=== PATIENT | female | born 2000 | race Two or more races ===

== ENCOUNTER 2025-01-05 21:16 | Emergency (ER) | payer MEDICAID, SELFPAY ==
[2025-01-05 21:17] VITALS: BMI 31.1
[2025-01-05 23:07] VITALS: BP 118/82; PULSE 93; RESP 18; TEMP 36.9; O2SAT 99
--- NOTE | 2025-01-05 23:36 | PD.EDFMALE ---
ED Female Urogenital RME/HPI General Chief complaint: Abdominal Pain Stated complaint: ABD PAIN 12 WEEKS PREG Time Seen by Provider: 01/05/25 23:22 Arrival date/time: 01/05/25 21:16 24F with no significant PMH presents to ED with 1 day of pelvic pain/cramping, as well as some N/V and possibly dysuria. Patient is 12 weeks , but denies vaginal bleeding. Patient took some Zofran w/o relief. Limitations: no limitations Related Data Previous Rx's ?Medication ?Instructions ?Recorded metoclopramide HCl 5 mg tablet 5 mg PO BID PRN nausea and 01/06/25 (Reglan) vomiting #14 tabs Allergies Allergy/AdvReac Type Severity Reaction Status Date / Time Penicillins Allergy Verified 01/05/25 21:17 Review of Systems Review of Systems Systems Reviewed: All systems reviewed, normal except as documented Constitutional Constitutional: Reports system reviewed and no additional complaints, except as documented, Denies fever(s) and Denies headache(s) ENT Ears, Nose, Mouth, and Throat: Denies disequilibrium and Denies headache(s) Cardiovascular Cardiovascular: Reports system reviewed and no additional complaints, except as documented, Denies chest pain and Denies dyspnea Respiratory Respiratory: Reports system reviewed and no additional complaints, except as documented, Denies cough and Denies dyspnea Gastrointestinal Gastrointestinal: Reports system reviewed and no additional complaints, except as documented, Reports as per HPI, Denies abdominal pain, Reports nausea and Reports vomiting Genitourinary Genitourinary: Reports as per HPI, Reports dysuria and Reports pelvic pain Neurologic Neurologic: Reports system reviewed and no additional complaints, except as documented, Denies confusion, Denies disequilibrium and Denies headache(s) Psychiatric Psychiatric: Denies confusion Past Medical History Past Medical History CARDIAC: Negative Congestive Heart Failure RESPIRATORY: Negative Chronic Obstructive Pulmonary Disease (COPD) GENITOURINARY: Negative Renal Disease ENDOCRINE: Negative Diabetes Mellitus Type 1 or Diabetes Mellitus Type 2 Social History SMOKING STATUS: Never smoker ED Exam General Limitations: Present no limitations General appearance: Present alert and in no apparent distress Head Head exam: Present atraumatic Eye Eye exam: Present normal appearance, PERRL and EOMI ENT ENT exam: Present normal exam, normal oropharynx and mucous membranes moist Neck Neck exam: Present normal inspection, full ROM and trachea midline Chest Chest inspection: Present normal inspection and symmetric chest wall rise Respiratory Respiratory exam: Present normal lung sounds bilaterally Cardiovascular Cardiovascular exam: Present regular rate, normal rhythm and normal heart sounds Abdominal Exam Abdominal exam: Present soft and normal bowel sounds Extremities Exam Extremities exam: Present normal inspection and full ROM Back Exam Back exam: Present normal inspection and full ROM Neurological Exam Neurological exam: Present alert, oriented X3 and CN II-XII intact Psychiatric Psychiatric exam: Present normal affect and normal mood Skin Skin exam: Present warm, dry, intact and normal color Course Quality Measures none Orders Category Date Time Status US OB <= 14 weeks fetus Stat Exams 01/06/25 00:00 Taken Beta HCG,Quantitative Stat Lab 01/05/25 23:41 Completed CBC Stat Lab 01/05/25 23:41 Completed CMP [Comprehensive Metabolic Panel] Stat Lab 01/05/25 23:41 Completed Urinalysis Stat Lab 01/06/25 01:10 Completed Urine Culture Stat Lab 01/05/25 23:42 Received Vital Signs Vital signs: Vital Signs Temperature 98.4 F 01/05/25 23:07 Pulse Rate 93 01/05/25 23:07 Respiratory Rate 18 01/05/25 23:07 Blood Pressure 118/82 01/05/25 23:07 Pulse Oximetry (%) 99 01/05/25 23:07 Oxygen Delivery Method Room Air 01/05/25 23:07 O2 at 99% on RA and WNLs Urogenital - Female MDM Narrative MDM Narrative:: 24F with no significant PMH presents to ED with 1 day of pelvic pain/cramping, as well as some N/V and possibly dysuria. Patient is 12 weeks , but denies vaginal bleeding. Patient took some Zofran w/o relief. Physical exam reveals no ab tenderness. Patient is afebrile, calm, and alert. US reveals normal IUP. Beta HCG WNLs. Mild leukocytosis, likely reactive to N/V. CMP unremarkable. UA clean, exception dehydration. Patient states no longer nausea. Will send anti-nausea med with different MOA than Zofran. Patient data External records reviewed:: [facility] previous records Clinical information provided by:: patient Social determinants that could affect healthcare access:: none Patient has the following chronic illnesses:: none How is presenting disease/condition affected by chronic disease/condition?: no chronic disease Evaluation data The following diagnostics were reviewed and interpreted by me:: lab results and radiology exam(s) Lab and/or radiology exams considered but not ordered:: ordered Interpretation Summary: above Medications / Prescriptions Medications or Prescriptions considered but not ordered:: not ordered Medication administrations:: n/a Consultations Consultation(s) initiated? (list below): No Diagnosis Urogenital Female Differential Diagnosis: urinary tract infection, bacterial vaginosis, trichomoniasis, cervicitis, ovarian cyst, vaginitis, ruptured ovarian cyst, cyst of Bartholin's gland, cystitis, dysmenorrhea and other (N/V during ) Most likely diagnosis given after review of the tests above:: N/V during Admission Indicated Admission indicated?: not indicated Admission Request Was there a request for admission?: No Disposition Plan Disposition Plan: Discharge Discharge Attestation Discharge Attestation: The patient and all family members were given an opportunity to ask questions and understood the discharge instructions. Discharge instructions specifically effects, indications for sooner follow up or return to the emergency department, and the expected course of current diagnosis. Patient condition: Stable Discharge Plan Plan Patient Disposition: HOME (Self Care) Disposition Comment: Stable Prescriptions/Referrals Prescriptions/Med Rec: New metoclopramide HCl [Reglan] 5 mg tablet 5 mg PO BID PRN (Reason: nausea and vomiting) Qty: 14 0RF Referrals: Smitha Smith FNP [Primary Care Provider] - In 1 week Problem List Clinical Impression: Nausea and vomiting during Patient/Caregiver Discharge Instructions Education Materials: ED Vomiting (Adult) Additional Instructions: Please follow-up with PCP within 24-48 hours and return immediately if symptoms worsen. Stay hydrated. Print Language: Chinese Stand Alone Forms: Patient Portal Info Letter SAHIL/CYDNEY Supervising Physician SAHIL/CYDNEY Supervising Physician: Dr. Crawford
--- NOTE | 2025-01-06 | XR_ITS ---
Examination: Complete OB ultrasound, less than 14 weeks, transabdominal Date and time of exam: January 06, 2025 at 0035 hrs. Indications: Pelvic pain onset today Technique: Obstetrical ultrasound images less than 14 weeks performed via transabdominal imaging Findings: A normal shaped single intrauterine gestation is present in the uterus. CRL 2.2 cm corresponds to 8 week 6 day gestational age Cardiac motion 166 BPM Ultrasonographic survey of visible and placental structures unremarkable. Amniotic fluid volume appears appropriate for this estimated gestational age. Right ovary 4.2 cm arterial flow. Left ovary 2.8 cm arterial flow Impression: Viable intrauterine gestation 8 weeks 6 days.
[2025-01-06 00:01] LABS: Basophils % (Auto) 0 % (0-2.5); Eosinophils % (Auto) 0 % (0-10); Hemoglobin 13.8 g/dL (12.0-16.0); Immature Granulocytes % (Auto) 0 % (0-0); Immature Granulocytes Auto 0.04 Thou/mm3 (0.00-0.00); Lymphocytes # (Auto) 0.7 Thou/mm3 (1.0-4.8); Lymphocytes % (Auto) 5 % (10-50); Mean Corpuscular HGB Conc 34.5 g/dl (31.0-37.0); Mean Corpuscular Hemoglobin 29.6 pg (25.0-35.0); Mean Corpuscular Volume 86 fL (80-100); Monocytes # (Auto) 0.3 Thou/mm3 (0.0-0.8); Monocytes % (Auto) 2 % (0-12); Neutrophils # (Auto) 12.6 Thou/mm3 (1.8-7.7); Neutrophils % (Auto) 92 % (37-80); Nucleated Red Blood Cell % 0 /100 WBC (0); Platelet Count 294 Thou/mm3 (140-440); RDW Standard Deviation 42.1 fL (36.4-46.3); Red Blood Count 4.67 Miln/mm3 (4.00-5.20); White Blood Count 13.7 Thou/mm3 (3.6-11.0)
[2025-01-06 00:24] LABS: Alanine Aminotransferase 25 U/L (10-49); Albumin, Serum 4.8 gm/dL (3.5-5.0); Albumin/Globulin Ratio 1.6 (1.2-2.2); Alkaline Phosphatase 74 U/L (46-116); Anion Gap 11 (7-16); Aspartate Amino Transferase 24 U/L (0-34); BUN/Creatinine Ratio 13 Ratio (12-20); Bilirubin,Total 0.4 mg/dL (0.3-1.2); Blood Urea Nitrogen 8 mg/dL (9-23); Calcium 10.4 mg/dL (8.3-10.6); Calcium (Corrected) 10.4 mg/dL (8.5-10.1); Carbon Dioxide 23.6 mMol/L (20.0-31.0); Chloride 104 mMol/L (98-107); Creatinine (Component) 0.6 mg/dL (0.6-1.3); Estimated Creatinine Clearance 140.2 mL/min (>60); Glucose 108 mg/dL (74-106); Osmolality,Calculated 276 (275-295); Potassium 4.2 mMol/L (3.4-5.1); Sodium 139 mMol/L (136-145); Total Protein 7.8 gm/dL (5.7-8.2); eGFR > 60 See Note
[2025-01-06 01:13] LABS: Beta HCG,Quantitative 151537 mIU/mL (<5.0)
[2025-01-06 01:18] LABS: Collection Type, Urine Clean Catch
[2025-01-06 01:36] LABS: Bilirubin,Urine Negative (Negative); Blood,Urine Trace (Negative); Clarity,Urine Clear (Clear/Hazy); Color,Urine Yellow (Lt Yel-Yel); Glucose, Urine Negative (Negative); Ketones,Urine 4+ (Negative); Leukocyte Esterase,Urine Negative (Negative); Nitrite,Urine Negative (Negative); Protein,Urine Trace (Neg - Trace); RBC,Urine 3 /hpf (0-3); Squamous Epithelial Cell,Urine 2 /hpf (0-5); Urobilinogen,Urine Negative mg/dL (0.0-1.0); WBC,Urine 2 /hpf (0-5)
--- NOTE | 2025-01-06 02:26 | PRELIM_ITS ---
Obstetric ultrasound (transabdominal ) with Doppler and wave Doppler spectral analysis. January 06, 2025 0035 hours Clinical history: Pain, no bleeding; 12 weeks Technique: Real-time ultrasound was performed using Duplex scanning including arterial inflow, venous outflow, color and spectral Doppler analysis of both ovaries. Comparison: None. Findings: There is an intrauterine gestation with a single live fetus of mean gestational age 8 weeks and 6 days (CRL= 2.2 cm). cardiac activity is present at heart rate of 166 beats per minute. The uterus measures 12.3 x 5.9 x 6.0 cm. The right ovary measures 4.2 x 2.0 x 3.0 cm and is unremarkable. The left ovary measures 2.8 x 1.7 x 2.0 cm and is unremarkable. Normal blood flow in the bilateral ovaries with normal wave Doppler spectral analysis. There is no free fluid in the pelvis. Impression: Intrauterine gestation with a single live fetus of mean gestational age 8 weeks and 6 days. No evidence of ovarian torsion. Report Electronically Signed By: Lance Collins 01/06/2025 2:25:48 AM [EST]
[2025-01-06 02:39] VITALS: BP 122/79; PULSE 89; RESP 19; TEMP 36.9; O2SAT 98
== END 2025-01-06 02:44 | disposition home or self-care (01) ==
PROVIDERS: Physician Assistant; Emergency Provider Emergency Medicine; PCP Registered Nurse Community Health
DX: O21.9 Vomiting of pregnancy, unspecified (principal); Z3A.12 12 weeks gestation of pregnancy
CPT/HCPCS: 36415; 76801; 80053; 81001; 84702; 85025; 87077; 87086; 87186; 99284

== ENCOUNTER 2025-05-09 09:05 | Observation (INO) | payer MEDICAID, SELFPAY ==
[2025-05-09] VITALS (28 sets, daily range): BP systolic 116–139; BP diastolic 72–80; PULSE 85–108; RESP 20–99; TEMP 37.2; O2SAT 98–99; BMI 37.4
--- NOTE | 2025-05-09 09:34 | XR_ITS ---
Examination: Complete OB ultrasound greater than 14 weeks Date and time of exam: May 09, 2025 1126 hours INDICATIONS: Vaginal bleeding and pelvic cramping beginning this morning Findings: Viable intrauterine single fetus with single amniotic sac presentation cephalic Cardiac motion 140 BPM Placenta anterior grade 1 Umbilical cord insertion 3 vessel seen. Amniotic fluid index 19.2 cm Mildly dilated left renal calyces spine anterior Cervix 4.0 cm. Composite estimated gestational age based on BPD, head circumference, abdominal circumference, femur length is 20 weeks 3 days Estimated weight 1101 g. Survey of intracranial anatomy, spinal anatomy, abdominal anatomy, four-chamber heart performed with no abnormalities identified. Impression: Viable intrauterine gestation cephalic presentation.
== END 2025-05-09 12:58 | disposition home or self-care (01) ==
PROVIDERS: Admitting Provider Obstetrics & Gynecology; Visit Provider Obstetrics & Gynecology
DX: O46.92 Antepartum hemorrhage, unspecified, second trimester (principal); Z3A.20 20 weeks gestation of pregnancy
CPT/HCPCS: 59025; 59899; 76805

== ENCOUNTER 2025-07-01 20:25 | Observation (INO) | payer MEDICAID, SELFPAY ==
[2025-07-01] VITALS (14 sets, daily range): BP systolic 106–134; BP diastolic 63–84; PULSE 93–117; RESP 17–99; TEMP 37; BMI 40.6
[2025-07-01 21:49] LABS: Collection Type, Urine Clean Catch
[2025-07-01 21:50] LABS: Basophils # (Auto) 0.0 Thou/mm3 (0.0-0.2); Basophils % (Auto) 1 % (0-2.5); Eosinophils # (Auto) 0.2 Thou/mm3 (0.0-0.5); Eosinophils % (Auto) 3 % (0-10); Hematocrit 36.1 % (36.0-46.0); Hemoglobin 12.2 g/dL (12.0-16.0); Immature Granulocytes Auto 0.05 Thou/mm3 (0.00-0.00); Lymphocytes # (Auto) 1.8 Thou/mm3 (1.0-4.8); Lymphocytes % (Auto) 22 % (10-50); Mean Corpuscular HGB Conc 33.8 g/dl (31.0-37.0); Mean Corpuscular Hemoglobin 29.7 pg (25.0-35.0); Mean Corpuscular Volume 88 fL (80-100); Monocytes # (Auto) 0.6 Thou/mm3 (0.0-0.8); Monocytes % (Auto) 7 % (0-12); Neutrophils # (Auto) 5.7 Thou/mm3 (1.8-7.7); Neutrophils % (Auto) 67 % (37-80); Nucleated Red Blood Cell # 0.00 Thou/mm3 (0.00-0.00); Nucleated Red Blood Cell % 0 /100 WBC (0); Platelet Count 305 Thou/mm3 (140-440); RDW Standard Deviation 44.5 fL (36.4-46.3); Red Blood Count 4.11 Miln/mm3 (4.00-5.20); White Blood Count 8.5 Thou/mm3 (3.6-11.0)
[2025-07-01 22:07] LABS: Bacteria,Urine 4+; Bilirubin,Urine Negative (Negative); Blood,Urine Negative (Negative); Clarity,Urine Clear (Clear/Hazy); Color,Urine Colorless (Lt Yel-Yel); Glucose, Urine Negative (Negative); Ketones,Urine Negative (Negative); Leukocyte Esterase,Urine Negative (Negative); Nitrite,Urine Negative (Negative); PH,Urine 7.0 (5.0-7.0); Protein,Urine Negative (Neg - Trace); RBC,Urine 1 /hpf (0-3); Specific Gravity,Urine 1.003 (1.001-1.035); Squamous Epithelial Cell,Urine 2 /hpf (0-5); Urobilinogen,Urine Negative mg/dL (0.0-1.0); WBC,Urine 1 /hpf (0-5)
[2025-07-01 22:11] LABS: Fibrinogen 553 mg/dL (175-375); INR 0.9 (0.9-1.3); Partial Thromboplastin Time 27.9 Seconds (22.0-36.0); Prothrombin Time 9.8 Seconds (9.0-12.2)
[2025-07-01 22:17] LABS: Alanine Aminotransferase 10 U/L (10-49); Albumin, Serum 4.1 gm/dL (3.5-5.0); Albumin/Globulin Ratio 1.6 (1.2-2.2); Alkaline Phosphatase 137 U/L (46-116); Anion Gap 13 (7-16); Aspartate Amino Transferase 15 U/L (0-34); BUN/Creatinine Ratio 10 Ratio (12-20); Bilirubin,Total 0.2 mg/dL (0.3-1.2); Blood Urea Nitrogen 5 mg/dL (9-23); Calcium 9.9 mg/dL (8.3-10.6); Calcium (Corrected) 9.9 mg/dL (8.5-10.1); Carbon Dioxide 21.1 mMol/L (20.0-31.0); Chloride 106 mMol/L (98-107); Creatinine (Component) 0.5 mg/dL (0.6-1.3); Estimated Creatinine Clearance 194.3 mL/min (>60); Globulin 2.5 gm/dL (2.3-3.5); Glucose 108 mg/dL (74-106); LDH (Lactate Dehydrogenase) 138 U/L (120-246); Osmolality,Calculated 277 (275-295); Potassium 3.6 mMol/L (3.4-5.1); Sodium 140 mMol/L (136-145); Total Protein 6.6 gm/dL (5.7-8.2); Uric Acid 4.2 mg/dL (3.1-7.8); eGFR > 60 See Note
[2025-07-01 22:26] LABS: Creatinine,Random Urine 13 mg/dL (30-125); Protein Total, Random Urine < 6 mg/dL (1-14)
[2025-07-01] MEDS: BETAMET ACET/BETAMET NA PH (Celestone) 6 MG/ML VIAL 12 MG IM (22:52)
== END 2025-07-01 23:12 | disposition home or self-care (01) ==
PROVIDERS: Admitting Provider Specialist; Visit Provider Specialist
DX: O26.893 Other specified pregnancy related conditions, third trimester (principal); R03.0 Elevated blood-pressure reading, without diagnosis of hypertension; Z3A.34 34 weeks gestation of pregnancy
CPT/HCPCS: 36415; 59025; 59899; 80053; 81001; 82570; 83615; 84156; 84550; 85025; 85384; 85610; 85730; J0702

== ENCOUNTER 2025-07-03 08:47 | Outpatient (CLI) | payer MEDICAID, SELFPAY ==
[2025-07-03 09:45] VITALS: BMI 40.0
[2025-07-03 10:07] VITALS: BP 119/63; PULSE 105
[2025-07-03 10:34] LABS: Basophils # (Auto) 0.0 Thou/mm3 (0.0-0.2); Basophils % (Auto) 0 % (0-2.5); Eosinophils # (Auto) 0.1 Thou/mm3 (0.0-0.5); Eosinophils % (Auto) 1 % (0-10); Hematocrit 35.1 % (36.0-46.0); Hemoglobin 11.6 g/dL (12.0-16.0); Immature Granulocytes Auto 0.09 Thou/mm3 (0.00-0.00); Lymphocytes # (Auto) 1.9 Thou/mm3 (1.0-4.8); Lymphocytes % (Auto) 27 % (10-50); Mean Corpuscular HGB Conc 33.0 g/dl (31.0-37.0); Mean Corpuscular Hemoglobin 29.1 pg (25.0-35.0); Mean Corpuscular Volume 88 fL (80-100); Monocytes # (Auto) 0.6 Thou/mm3 (0.0-0.8); Monocytes % (Auto) 9 % (0-12); Neutrophils # (Auto) 4.3 Thou/mm3 (1.8-7.7); Neutrophils % (Auto) 61 % (37-80); Nucleated Red Blood Cell # 0.00 Thou/mm3 (0.00-0.00); Nucleated Red Blood Cell % 0 /100 WBC (0); Platelet Count 288 Thou/mm3 (140-440); RDW Standard Deviation 44.5 fL (36.4-46.3); Red Blood Count 3.98 Miln/mm3 (4.00-5.20); White Blood Count 6.9 Thou/mm3 (3.6-11.0)
[2025-07-03 10:37] VITALS: BP 113/66; PULSE 105
[2025-07-03 10:43] LABS: Alanine Aminotransferase 11 U/L (10-49); Albumin, Serum 4.0 gm/dL (3.5-5.0); Albumin/Globulin Ratio 1.7 (1.2-2.2); Alkaline Phosphatase 130 U/L (46-116); Anion Gap 11 (7-16); Aspartate Amino Transferase 12 U/L (0-34); BUN/Creatinine Ratio 12 Ratio (12-20); Bilirubin,Total < 0.2 mg/dL (0.3-1.2); Blood Urea Nitrogen 6 mg/dL (9-23); Calcium 9.1 mg/dL (8.3-10.6); Calcium (Corrected) 9.1 mg/dL (8.5-10.1); Carbon Dioxide 23.6 mMol/L (20.0-31.0); Chloride 107 mMol/L (98-107); Creatinine (Component) 0.5 mg/dL (0.6-1.3); Globulin 2.3 gm/dL (2.3-3.5); Glucose 100 mg/dL (74-106); Osmolality,Calculated 280 (275-295); Potassium 3.6 mMol/L (3.4-5.1); Sodium 142 mMol/L (136-145); Total Protein 6.3 gm/dL (5.7-8.2); Uric Acid 4.5 mg/dL (3.1-7.8); eGFR > 60 See Note
[2025-07-03 10:46] LABS: Fibrinogen 506 mg/dL (175-375); INR 0.9 (0.9-1.3); Partial Thromboplastin Time 26.4 Seconds (22.0-36.0); Prothrombin Time 9.8 Seconds (9.0-12.2)
[2025-07-03 10:47] LABS: Protein Total, Urine 8 mg/dL (1-14)
[2025-07-03 10:49] LABS: Protein Total, 24 hr Urine 344 mg/24hr (<149); Protein Total, Urine Volume 4300 mL/24hr (600-1800)
[2025-07-03 10:57] VITALS: BP 117/71; PULSE 100
[2025-07-03] MEDS: BETAMET ACET/BETAMET NA PH (Celestone) 6 MG/ML VIAL 12 MG IM (10:58)
[2025-07-03 11:11] VITALS: BP 113/61; PULSE 90
== END 2025-07-03 12:00 | disposition home or self-care (01) ==
LOC: S4S1 08:47 → S4SX 08:48
PROVIDERS: Referring Provider Specialist; Visit Provider Specialist
DX: Z36.89 Encounter for other specified antenatal screening (principal); Z34.90 Encounter for supervision of normal pregnancy, unspecified, unspecified trimester; Z3A.00 Weeks of gestation of pregnancy not specified
CPT/HCPCS: 36415; 59025; 80053; 84156; 84550; 85025; 85384; 85610; 85730; 96372; J0702

== ENCOUNTER 2025-07-13 14:48 | Inpatient (IN) | payer MEDICAID, SELFPAY ==
[2025-07-13] VITALS (35 sets, daily range): BP systolic 102–175; BP diastolic 53–101; PULSE 95–142; RESP 14–25; TEMP 36.3–36.5; O2SAT 96–99; BMI 39.9
--- NOTE | 2025-07-13 15:01 | PD.LDHP ---
Documentation for date of: 07/13/25 OB Labor/Induct. HPI History of Present Illness : 1 Term pregnancies: 0 pregnancies: 0 Living children: 0 History of Abortions: Spontaneous and Elective: 0 History of sections: No History of : No History of present illness: H and P dictated on the STAT line in Nuance #9. #[id number] Past Medical History Surgical History SURGICAL: Negative Section Meds Home Medications and Allergies Home Medications ?Medication ?Instructions ?Recorded ?Confirmed ?Type vitamins no.45-iron-FA 28 1 tab PO QDAY 05/09/25 07/13/25 History mg iron-1 mg chewable tablet Allergies Allergy/AdvReac Type Severity Reaction Status Date / Time Penicillins Allergy Verified 07/13/25 14:51 OB Exam Physical Exam Vital signs: Pulse BP 142 H 175/101 H 07/13/25 15:00 07/13/25 15:00
[2025-07-13] MEDS: LABETALOL INJ 5 MG/ML VIAL 20 ML 20 MG IVP (15:15)
--- NOTE | 2025-07-13 15:23 | ESHP_ITS ---
RE: REYES HERNÁNDEZ : 2000 DATE OF ADMISSION: 07/13/2025 HISTORY OF PRESENT ILLNESS: This is a 24-year-old 1, para 0 with due date of 08/12/2025 with intrauterine at 35 weeks and 5 days, who has known preeclampsia and presents to the office today complaining of severe headaches, which are not going away as well as increased swelling in her face and hands and feet. Her systolic blood pressure was 166. Her heart rate was 129. She was referred immediately to Maternal Unit for preparation for delivery for preeclampsia with severe features. Her most recent blood work on 07/11/2025 showed normal PIH blood work. A 24-hour urine collection on 07/03/2025 showed 344 mg of protein over 24 hours. The patient received betamethasone on 07/02/2025 and 07/03/2025. She denies any chest pain, palpitations, cough, fever, shortness of breath or lower extremity pain. PAST MEDICAL HISTORY: Klebsiella and E. coli urinary tract infection 03/08/2025 and 06/14/2025. MEDICATIONS: 1. multivitamin 1 p.o. daily. 2. Aspirin 1 p.o. daily. ALLERGIES: PENICILLIN. PAST SURGICAL HISTORY: Denies. SOCIAL HISTORY: She denies any alcohol, drug use or smoking. FAMILY HISTORY: Denies. REVIEW OF SYSTEMS: As above. PHYSICAL EXAMINATION: VITAL SIGNS: Blood pressure 166/99, heart rate 126, respiration 20, temperature is 98.6. HEENT: Oropharynx and sclerae are clear. Facial edema. LUNGS: Clear to auscultation bilaterally. HEART: Tachycardic, but regular rhythm. ABDOMEN: Gravid consistent with 35 weeks gestation. Nontender fundus. EXTREMITIES: +2 bilateral lower extremity edema. SKIN: No gross rashes or lesions. NEUROLOGIC: No focal deficit. ASSESSMENT AND PLAN: Intrauterine at 35 weeks and 5 days, preeclampsia with severe features, maternal tachycardia of unclear etiology, status post betamethasone on 07/02/2025 and 07/03/2025. PLAN: delivery. Informed consent was obtained. The patient was made aware of the risk complication, alternative benefits of delivery and she agrees. DT: 15:01:29 TT: 15:22:00 Ref: [id number] - TID: [id number] [facility]
[2025-07-13 15:24] LABS: Lactate (Lactic Acid) 1.5 mMol/L (0.4-2.0)
[2025-07-13 15:26] LABS: Basophils # (Auto) 0.0 Thou/mm3 (0.0-0.2); Basophils % (Auto) 0 % (0-2.5); Eosinophils # (Auto) 0.1 Thou/mm3 (0.0-0.5); Eosinophils % (Auto) 1 % (0-10); Hematocrit 38.9 % (36.0-46.0); Hemoglobin 13.0 g/dL (12.0-16.0); Immature Granulocytes Auto 0.03 Thou/mm3 (0.00-0.00); Lymphocytes # (Auto) 1.9 Thou/mm3 (1.0-4.8); Lymphocytes % (Auto) 21 % (10-50); Mean Corpuscular HGB Conc 33.4 g/dl (31.0-37.0); Mean Corpuscular Hemoglobin 29.1 pg (25.0-35.0); Mean Corpuscular Volume 87 fL (80-100); Monocytes # (Auto) 0.6 Thou/mm3 (0.0-0.8); Monocytes % (Auto) 6 % (0-12); Neutrophils # (Auto) 6.3 Thou/mm3 (1.8-7.7); Neutrophils % (Auto) 71 % (37-80); Nucleated Red Blood Cell # 0.00 Thou/mm3 (0.00-0.00); Nucleated Red Blood Cell % 0 /100 WBC (0); Platelet Count 316 Thou/mm3 (140-440); RDW Standard Deviation 45.1 fL (36.4-46.3); Red Blood Count 4.46 Miln/mm3 (4.00-5.20); White Blood Count 8.9 Thou/mm3 (3.6-11.0)
[2025-07-13] MEDS: RINGERS LACTATED 1000 ML 1,000 ML 100 ML IV (15:32)
[2025-07-13 15:48] LABS: INR 0.9 (0.9-1.3); Prothrombin Time 10.0 Seconds (9.0-12.2)
[2025-07-13 15:54] LABS: Alanine Aminotransferase 12 U/L (10-49); Albumin, Serum 4.3 gm/dL (3.5-5.0); Albumin/Globulin Ratio 1.6 (1.2-2.2); Alkaline Phosphatase 182 U/L (46-116); Anion Gap 15 (7-16); Aspartate Amino Transferase 15 U/L (0-34); BUN/Creatinine Ratio 13 Ratio (12-20); Bilirubin,Total 0.3 mg/dL (0.3-1.2); Blood Urea Nitrogen < 5 mg/dL (9-23); Calcium 9.4 mg/dL (8.3-10.6); Calcium (Corrected) 9.4 mg/dL (8.5-10.1); Carbon Dioxide 19.2 mMol/L (20.0-31.0); Chloride 105 mMol/L (98-107); Creatinine (Component) 0.4 mg/dL (0.6-1.3); Estimated Creatinine Clearance 240.7 mL/min (>60); Globulin 2.7 gm/dL (2.3-3.5); Glucose 89 mg/dL (74-106); LDH (Lactate Dehydrogenase) 163 U/L (120-246); Osmolality,Calculated 273 (275-295); Potassium 3.6 mMol/L (3.4-5.1); Procalcitonin 0.04 ng/ml (0.0-0.49); Sodium 139 mMol/L (136-145); Total Protein 7.0 gm/dL (5.7-8.2); Uric Acid 3.9 mg/dL (3.1-7.8); eGFR > 60 See Note
[2025-07-13 16:09] LABS: Syphilis Nonreactive (Nonreactive)
--- NOTE | 2025-07-13 16:18 | PD.LDDS ---
DS: Providers Provider Date of admission: 07/13/25 14:48 Primary care physician: Physician No Primary/Family Admitting Provider: Buster Arriaga MD Attending Provider on Admission: Buster Arriaga MD Attending Provider on DC: Buster Arriaga MD Discharging Provider: Buster Arriaga MD DS: Diagnosis Discharge Diagnosis (1) Preeclampsia, severe: Status: Acute (2) delivery delivered: Status: Acute Problem List Completed Was Problem List Reviewed/Reconciled?: Yes Summary/Hosp Course Brief History: H and P dictated on the STAT line in Nuance #9. #[id number] Peripartum Data Delivery Method: Low Transverse Procedures: Procedures Operation Date: 07/13/25 16:45 <No data on this case meets the specified criteria> Time Spent with Patient Time attestation: Total time spent providing and/or coordinating discharge services: Exam Vital Signs Pulse BP Pulse Ox 99 134/87 H 98 07/13/25 16:01 07/13/25 16:01 07/13/25 16:18 Discharge Plan Plan Patient Disposition: HOME (Self Care) Patient condition on transfer: Stable Prescriptions/Referrals Prescriptions/Med Rec: New ibuprofen 600 mg tablet 600 mg PO Q6H PRN (Reason: pain) Qty: 30 0RF hydrocodone-acetaminophen 5-325 mg tablet 1 tab PO Q6H MDD 4 PRN (Reason: pain) Qty: 20 0RF Continued vitamin no.45-iron-FA 28 mg iron- 1 mg tablet,chewable 1 tab PO QDAY Referrals: No Primary/Family,Physician [Primary Care Provider] Patient/Caregiver Discharge Instructions Discharge Activity: activity as tolerated Other Discharge Activity Instructions:: Follow up office 1 week. Education Materials: Understanding Blues, Breast Care After , C Section Dc Print Language: Sammarinese Stand Alone Forms: Svetlana Award Info., Patient Portal Info Letter Discharge Order Discharge Orders: Discharge (Routine); Ordered 07/15/25 Ordered By: Buster Arriaga Planned Discharge Date 07/15/25 (1) Preeclampsia, severe Qualifiers: Trimester: third trimester Qualified Code(s): O14.13 - Severe pre-eclampsia, third trimester
[2025-07-13 16:19] LABS: Fibrinogen 609 mg/dL (175-375)
--- NOTE | 2025-07-13 16:19 | ESOP_ITS ---
Operative Note - [employer] Procedure Date of procedure: 07/13/25 Procedure Performed: Primary low-transverse section via Pfannenstiel skin incision Indication: Intrauterine at 35 weeks and 5 days Preeclampsia with severe features Pre-Op diagnosis: Intrauterine at 35 weeks and 5 days Preeclampsia with severe features Post-Op diagnosis: Intrauterine at 35 weeks and 5 days Preeclampsia with severe features Anesthesia type: Spinal Procedure description: After proper informed consent was obtained and the patient was made aware of the risks, complications, alternatives and benefits of the proposed procedure she was taken to the operating room where she underwent induction of spinal anesthesia. She was prepped and draped in the usual sterile fashion. A timeout was performed.? A Pfannenstiel skin incision was made with the scalpel and carried through to the underlying layer of fascia with the Bovie. The fascia was nicked in the midline incision and the incision was extended bilaterally with the Bovie. The inferior aspect of the fascial incision was grasped with Willie clamps elevated and the underlying rectus muscle dissected off with the Bovie. The superior aspect the fascial incision was grasped with Willie clamps elevated and the underlying rectus muscle dissected off with the Bovie. The rectus muscles were in the midline. The peritoneum was grasped between 2 Jama clamps and entered sharply with the Metzenbaum scissors. The peritoneum was extended superiorly and inferiorly with good visualization of the bladder. The vesicouterine peritoneum was incised transversely and the bladder flap created digitally. A Wayland blade was inserted. A low transverse incision was made in the uterus with a scapel and the incision was extended digitally. The male 's head delivered and the mouth and nose were suctioned with the bulb suction. Tight nuchal cord reduced. The shoulder and body delivered atraumatically. The cord was clamped after 30 second delayed cord clamping and the cord was cut.? The infant was handed off to the waiting Pediatric staff, cord blood was collected for lab testing. The placenta was removed complete and intact. The uterus was exteriorized and cleared of all clots and debris. The uterine incision was closed with #1-0 chromic catgut suture in a running interlocking fashion. A second layer of the same suture was used to imbricate the first layer and obtain excellent hemostasis. The vesicouterine peritoneum was closed with 2-0 chromic catgut suture in a running fashion. The firm uterus was returned to the abdomen. The gutters were cleared of all clots and debris. The peritoneum was closed with 0 chromic catgut suture in running fashion. The rectus muscle was closed with 0 chromic catgut suture. The fascia was closed with 0 Vicryl beginning at each angle and ending in the center in a running fashion. The subcutaneous tissue was irrigated with warmed normal saline solution and found to be hemostatic. The subcutaneous tissue was closed with 2-0 chromic catgut suture in a running fashion. The skin was closed with 4-0 Monocryl. A Dermabond Prineo dressing was applied and a sterile pressure dressing was applied.? She tolerated the procedure well. Counts were correct. I discussed with the patient the nature of her condition, intraoperative findings and expectation for recovery all?questions answered. Specimen: none Estimated blood loss (ml): 700 Findings: Live male APGARS 9/9 Clear amniotic fluid Normal-appearing uterus ovaries and tubes Placenta removed complete intact Weight 6'11 Nuchal cord x 1 tight. Complications: none Surgical staff DANAY Tran Dr, Surgeon Nilsa Encarnacion [employer] Operation Date: 07/13/25 16:45 <No data on this case meets the specified criteria> Diagnosis Problem List Completed Was Problem List Reviewed/Reconciled?: Yes
[2025-07-13] MEDS: FAMOTIDINE INJ 10 MG/ML VIAL 2 ML 20 MG IV (16:21)
[2025-07-13] MEDS: METOCLOPRAMIDE INJ 5 MG/ML VIAL 2 ML 10 MG IVP (16:21)
[2025-07-13 16:31] LABS: Collection Type, Urine Clean Catch
[2025-07-13 17:25] LABS: Bacteria,Urine Rare; Bilirubin,Urine Negative (Negative); Blood,Urine Negative (Negative); Clarity,Urine Clear (Clear/Hazy); Color,Urine Colorless (Lt Yel-Yel); Glucose, Urine Negative (Negative); Ketones,Urine Negative (Negative); Leukocyte Esterase,Urine Negative (Negative); Nitrite,Urine Negative (Negative); PH,Urine 7.0 (5.0-7.0); Protein,Urine Negative (Neg - Trace); RBC,Urine < 1 /hpf (0-3); Specific Gravity,Urine 1.003 (1.001-1.035); Squamous Epithelial Cell,Urine < 1 /hpf (0-5); Urobilinogen,Urine Negative mg/dL (0.0-1.0); WBC,Urine 1 /hpf (0-5)
[2025-07-13] MEDS: KETOROLAC INJ 30 MG/ML VIAL IVP (19:13)
[2025-07-13] MEDS: ONDANSETRON INJ 2 MG/ML INJ 2 ML 4 MG IVP (21:10)
[2025-07-13 23:13] LABS: Basophils # (Auto) 0.1 Thou/mm3 (0.0-0.2); Basophils % (Auto) 1 % (0-2.5); Eosinophils # (Auto) 0.1 Thou/mm3 (0.0-0.5); Eosinophils % (Auto) 1 % (0-10); Hematocrit 32.0 % (36.0-46.0); Hemoglobin 10.7 g/dL (12.0-16.0); Immature Granulocytes Auto 0.03 Thou/mm3 (0.00-0.00); Lymphocytes # (Auto) 1.9 Thou/mm3 (1.0-4.8); Lymphocytes % (Auto) 17 % (10-50); Mean Corpuscular HGB Conc 33.4 g/dl (31.0-37.0); Mean Corpuscular Hemoglobin 29.2 pg (25.0-35.0); Mean Corpuscular Volume 87 fL (80-100); Monocytes # (Auto) 0.7 Thou/mm3 (0.0-0.8); Monocytes % (Auto) 6 % (0-12); Neutrophils # (Auto) 8.3 Thou/mm3 (1.8-7.7); Neutrophils % (Auto) 75 % (37-80); Nucleated Red Blood Cell # 0.00 Thou/mm3 (0.00-0.00); Nucleated Red Blood Cell % 0 /100 WBC (0); Platelet Count 238 Thou/mm3 (140-440); RDW Standard Deviation 44.7 fL (36.4-46.3); Red Blood Count 3.66 Miln/mm3 (4.00-5.20); White Blood Count 11.1 Thou/mm3 (3.6-11.0)
[2025-07-14] MEDS: KETOROLAC INJ 30 MG/ML VIAL IVP (00:52)
[2025-07-14] MEDS: OXYTOCIN in NS 20 units 20 UNIT/1,000 ML BAG 125 UNIT IV (00:53)
[2025-07-14 03:41] VITALS: BP 106/70; PULSE 90; RESP 18; TEMP 36.6; O2SAT 97
[2025-07-14 08:00] VITALS: BP 107/69; PULSE 107; RESP 18; TEMP 36.6; O2SAT 98
[2025-07-14] MEDS: HYDROcodone/APAP 5/325 TABLET 2 TAB PO ×2 (09:46→17:16)
[2025-07-14] MEDS: DOCUSATE SOD 100 MG CAPSULE PO (09:46)
[2025-07-14 12:20] VITALS: BP 112/66; PULSE 105; RESP 18; TEMP 36.9; O2SAT 97
[2025-07-14 16:10] VITALS: BP 115/79; PULSE 109; RESP 16; TEMP 36.9; O2SAT 97
--- NOTE | 2025-07-14 18:38 | PD.LDPPPRG ---
Subjective Subjective Interval history: Denies any problem or complaint. Voiding, ambulating , tolerating regular diet, passing flatus. No MADSEN or change in vision or RUQ pain. Exam Vital Signs Temp Pulse Resp BP Pulse Ox O2 Del Method 98.5 F 109 H 16 115/79 97 Room Air 07/14/25 16:10 07/14/25 16:10 07/14/25 16:10 07/14/25 16:10 07/14/25 16:10 07/14/25 16:10 Routine Respiratory Exam Comments: CTA B/L Routine Cardiovascular Exam Comments: Tachycardic but regular rhythm Routine Abdominal Exam Comments: Incision clear and intact . Nondistended. Routine Extremities Exam Comments: Nontender Objective Labs 07/13/25 23:02 07/13/25 15:10 Labs: Laboratory Results - last 24 hr 07/13/25 23:02 WBC 11.1 H RBC 3.66 L Hgb 10.7 L D Hct 32.0 L MCV 87 MCH 29.2 MCHC 33.4 RDW Std Deviation 44.7 Plt Count 238 D Neut % (Auto) 75 Lymph % (Auto) 17 Bleckley % (Auto) 6 Eos % (Auto) 1 Baso % (Auto) 1 Neut # (Auto) 8.3 H Lymph # (Auto) 1.9 Bleckley # (Auto) 0.7 Eos # (Auto) 0.1 Baso # (Auto) 0.1 Immature Gran # (Auto) 0.03 H Absolute Nucleated RBC 0.00 Immature Gran % 0 Nucleated RBC % 0 Impressions Impression: POD #1 s/p C/S Preeclampsia with stable BP after delivery Tachycardia due to anxiety Care Possible discharge home tomorrow. Assessment & Plan Problem List (1) Preeclampsia, severe: Status: Acute (2) delivery delivered: Status: Acute Time Spent With Patient Time: Total time spent is greater than 50% in coordination of care (as documented) at patient's floor/unit and/or counseling patient:
--- NOTE | 2025-07-14 18:44 | PD.LDDELS ---
Data (Coronel) Data Hx Section: No : 1 Term: 0 : 0 Livin Abortions: Spontaneous & Theraputic: 0 Delivery Data (Coronel) Labor Data Induction/Augmentation Agent: None ROM date: 07/13/25 ROM time: 16:56 Amniotic membrane rupture type: Artificial Amniotic fluid description: Clear Delivery Data EDC: 08/12/25 EDC calculated by:: LMP/early US confirmation Onset of labor date: 07/13/25 Onset of labor time: 16:56 Complete dilation date: 07/13/25 Complete dilation time: 16:56 [place] delivery date: 07/13/25 delivery time: 16:57 Gestational age (weeks): 35 Gestational age (days): 5 Placenta delivery date: 07/13/25 Placenta delivery time: 16:58 Stage 1 total time: Labor - Stage 1 Duration 0 minutes Delivered by: Geiling Delivery nurse: [email or web address] [place] nurse: Akash Mine Wirer at delivery: No Support person(s) at delivery: fob Other staff at delivery: Kris, DANAY MCELC, VICE PRESIDENT TALENT MANAGEMENT [id number], histopathology technician Delivery Method Delivery method: Low Transverse Presentation: Vertex position: OP Anesthesia Type Anesthesia Type: Spinal Anesthesia type: Spinal Placenta Placenta delivery description: Manual Removal Cord blood sent to lab: Yes cord blood collection: Cord Blood Type Episiotomy Episiotomy description: None EBL Estimated blood loss (ml): 700 Umbilical Cord cord description: 3 Vessels, Nuchal Cord and Reduced Complications Complications: None [place] Data (Coronel) [place] Data order: 1 's gender: Male Identification band number: [id number] weight (gms): 6 lb 11.233 oz Weight (pounds): 6 lbs and 11.2 ozs [place] length: 19 in 1 minute: 9 5 minutes: 9
[2025-07-14 19:18] VITALS: BP 120/72; PULSE 108; RESP 20; TEMP 36.6; O2SAT 97
[2025-07-14] MEDS: IBUPROFEN TAB 400 MG TABLET 800 MG PO (20:58)
[2025-07-14] MEDS: SIMETHICONE 80 MG CHEW PO (20:59)
[2025-07-14 23:41] VITALS: BP 118/79; PULSE 100; RESP 20; TEMP 36.8; O2SAT 97
--- NOTE | 2025-07-15 00:04 | XR_ITS ---
Examination: Abdomen sonogram, Limited Date and time of exam: July 15, 2025, 0148 hours INDICATIONS: Onset right upper abdominal pain today Technique: Real-time hartman scale transabdominal sonographic images of the upper abdomen obtained. Findings: Normal gallbladder. Common bile duct mildly enlarged 0.6 cm no stones Pancreatic head 1.9 cm Liver 19.5 cm no focal liver lesions Normal hepatopetal portal venous flow Patent IVC IMPRESSION: Normal gallbladder Borderline enlarged common bile duct, consider MRCP follow-up as clinically warranted
--- NOTE | 2025-07-15 03:28 | PRELIM_ITS ---
Gallbladder ultrasound. July 15, 2025 0148 hours Clinical history: Right upper quadrant pain Findings: Gallbladder wall is 2 mm thick. No gallbladder calculi, sludge or polyps. Common bile duct is 6 mm diameter. Pancreas is unremarkable. Liver is 19.5 cm long, mildly enlarged, with homogeneous echogenicity and smooth contour. No intrahepatic biliary duct dilatation. Main portal vein is antegrade. Inferior vena cava is patent. Impression: Normal gallbladder. Borderline dilated common bile duct. Consider MRCP for further evaluation if clinically indicated. Report Electronically Signed By: Mando Webber 07/15/2025 3:27:36 AM [EST]
[2025-07-15 03:40] VITALS: BP 114/71; PULSE 90; RESP 18; TEMP 36.7; O2SAT 97
[2025-07-15 06:06] LABS: Basophils # (Auto) 0.0 Thou/mm3 (0.0-0.2); Basophils % (Auto) 0 % (0-2.5); Eosinophils # (Auto) 0.2 Thou/mm3 (0.0-0.5); Eosinophils % (Auto) 2 % (0-10); Hematocrit 28.7 % (36.0-46.0); Hemoglobin 9.5 g/dL (12.0-16.0); Immature Granulocytes Auto 0.04 Thou/mm3 (0.00-0.00); Lymphocytes # (Auto) 1.8 Thou/mm3 (1.0-4.8); Lymphocytes % (Auto) 19 % (10-50); Mean Corpuscular HGB Conc 33.1 g/dl (31.0-37.0); Mean Corpuscular Hemoglobin 29.8 pg (25.0-35.0); Mean Corpuscular Volume 90 fL (80-100); Monocytes # (Auto) 0.6 Thou/mm3 (0.0-0.8); Monocytes % (Auto) 7 % (0-12); Neutrophils # (Auto) 6.4 Thou/mm3 (1.8-7.7); Neutrophils % (Auto) 71 % (37-80); Nucleated Red Blood Cell # 0.00 Thou/mm3 (0.00-0.00); Nucleated Red Blood Cell % 0 /100 WBC (0); Platelet Count 210 Thou/mm3 (140-440); RDW Standard Deviation 48.4 fL (36.4-46.3); Red Blood Count 3.19 Miln/mm3 (4.00-5.20); White Blood Count 9.1 Thou/mm3 (3.6-11.0)
[2025-07-15 06:32] LABS: Alanine Aminotransferase 11 U/L (10-49); Albumin, Serum 3.3 gm/dL (3.5-5.0); Albumin/Globulin Ratio 1.6 (1.2-2.2); Alkaline Phosphatase 111 U/L (46-116); Anion Gap 12 (7-16); Aspartate Amino Transferase 23 U/L (0-34); BUN/Creatinine Ratio 13 Ratio (12-20); Bilirubin,Total 0.3 mg/dL (0.3-1.2); Blood Urea Nitrogen < 5 mg/dL (9-23); Calcium 9.0 mg/dL (8.3-10.6); Calcium (Corrected) 9.6 mg/dL (8.5-10.1); Carbon Dioxide 22.0 mMol/L (20.0-31.0); Chloride 106 mMol/L (98-107); Creatinine (Component) 0.4 mg/dL (0.6-1.3); Estimated Creatinine Clearance 240.7 mL/min (>60); Globulin 2.1 gm/dL (2.3-3.5); Glucose 87 mg/dL (74-106); Osmolality,Calculated 275 (275-295); Potassium 3.6 mMol/L (3.4-5.1); Sodium 140 mMol/L (136-145); Total Protein 5.4 gm/dL (5.7-8.2); eGFR > 60 See Note
[2025-07-15 08:05] VITALS: BP 110/75; PULSE 96; RESP 18; TEMP 36.9; O2SAT 98
[2025-07-15] MEDS: IBUPROFEN TAB 400 MG TABLET 800 MG PO (08:34)
[2025-07-15] MEDS: PANTOPRAZOLE 20 MG TABLET PO (08:34)
[2025-07-15] MEDS: DOCUSATE SOD 100 MG CAPSULE PO (08:34)
--- NOTE | 2025-07-15 09:09 | PD.LDPPPRG ---
Subjective Subjective Interval history: Patient denies any primary complaint. She is voiding and ambulating and tolerating regular diet. She denies any excessive vaginal bleeding. She denies any dizziness or lightheadedness. A right upper quadrant ultrasound shows a normal gallbladder without gallstones. She has no significant pain on her evaluation this morning. She is passing flatus. Exam Vital Signs Temp Pulse Resp BP Pulse Ox O2 Del Method 98.1 F 90 18 114/71 97 Room Air 07/15/25 03:40 07/15/25 03:40 07/15/25 03:40 07/15/25 03:40 07/15/25 03:40 07/15/25 03:40 Routine Respiratory Exam Comments: Clear to auscultation bilaterally Routine Cardiovascular Exam Comments: Regular rate and rhythm Routine Abdominal Exam Comments: Incision clear and intact. Fundus is firm. Nondistended. No epigastric tenderness Routine Extremities Exam Comments: No lower extremity tenderness Objective Labs 07/15/25 05:16 07/15/25 05:16 Labs: Laboratory Results - last 24 hr 07/15/25 05:16 WBC 9.1 RBC 3.19 L Hgb 9.5 L Hct 28.7 L MCV 90 MCH 29.8 MCHC 33.1 RDW Std Deviation 48.4 H Plt Count 210 Neut % (Auto) 71 Lymph % (Auto) 19 Metcalfe % (Auto) 7 Eos % (Auto) 2 Baso % (Auto) 0 Neut # (Auto) 6.4 Lymph # (Auto) 1.8 Metcalfe # (Auto) 0.6 Eos # (Auto) 0.2 Baso # (Auto) 0.0 Immature Gran # (Auto) 0.04 H Absolute Nucleated RBC 0.00 Immature Gran % 0 Nucleated RBC % 0 Sodium 140 Potassium 3.6 Chloride 106 Carbon Dioxide 22.0 Anion Gap 12 BUN < 5 L Creatinine 0.4 L Estim Creat Clear Calc 240.7 eGFR > 60 BUN/Creatinine Ratio 13 Glucose 87 Calculated Osmolality 275 Calcium 9.0 Corrected Calcium 9.6 Total Bilirubin 0.3 AST 23 ALT 11 Alkaline Phosphatase 111 D Total Protein 5.4 L Albumin 3.3 L D Globulin 2.1 L Albumin/Globulin Ratio 1.6 Impressions Impression: Postop day #2 status post delivery Gastroesophageal reflux disease controlled with Protonix Preeclampsia with severe features: Stable blood pressures since delivery: PIH labs within normal range this morning Discharge home Discharge instructions given Follow-up in the office in 1 week Assessment & Plan Problem List (1) Preeclampsia, severe: Status: Acute (2) delivery delivered: Status: Acute Time Spent With Patient Time: Total time spent is greater than 50% in coordination of care (as documented) at patient's floor/unit and/or counseling patient:
== END 2025-07-15 12:25 | disposition home or self-care (01) | DRG 540 ==
LOC: S4SX 16:16 → S4NX 16:33
PROVIDERS: Admitting Provider Specialist; Visit Provider Specialist
PROC: 10D00Z1 Extraction of Products of Conception, Low, Open Approach (ICD-10-PCS; CPT 59514; principal; 2025-07-13 16:30)
DX: O14.14 Severe pre-eclampsia complicating childbirth (principal); O99.892 Other specified diseases and conditions complicating childbirth; R00.0 Tachycardia, unspecified; O69.1XX0 Labor and delivery complicated by cord around neck, with compression, not applicable or unspecified; K21.9 Gastro-esophageal reflux disease without esophagitis; O99.62 Diseases of the digestive system complicating childbirth; Z3A.35 35 weeks gestation of pregnancy; Z37.0 Single live birth; Z79.82 Long term (current) use of aspirin; Z88.0 Allergy status to penicillin
CPT/HCPCS: 36415; 76705; 80053; 81001; 83605; 83615; 84145; 84550; 85025; 85384; 85610; 86780; 86850; 86900; 86901; 86923; A4217; A4314; A4649; J0736; J1885; J2175; J2274; J2371; J2405; J2590; J2765; J3010; J3490; J7120; S0191; A9270; J1920; J2270

== ENCOUNTER 2025-07-20 00:42 | Inpatient (IN) | payer MEDICAID, SELFPAY ==
[2025-07-20] VITALS (25 sets, daily range): BP systolic 114–188; BP diastolic 68–122; PULSE 67–109; RESP 16–24; TEMP 36.4–37.2; O2SAT 95–99; BMI 32.9
--- NOTE | 2025-07-20 00:56 | EDNOTE_ITS ---
ED General RME/HPI General Chief complaint: Anxiety Stated complaint: ANXIETY Time Seen by Provider: 07/20/25 00:55 Arrival date/time: 07/20/25 00:42 RME / HPI RME / HPI narrative: Dr. Joy?s Main ED Evaluation: 24yo female with a history of preeclampsia, on 07/13/[address] Corina PIZARRO from home presents to the ED for a possible seizure. Per EMS, patient's fiancee called due to the patient having a possible seizure while sitting on the couch. Blood pressure on scene was initially 147/103 and 153/114. Blood sugar was 103. After patient was placed in a room, EMS noted patient's BP to be 148/97. Patient is awake, but is unable to provide any history at this time. Related Data Home Medications ?Medication ?Instructions ?Recorded ?Confirmed vitamins no.45-iron-FA 28 1 tab PO QDAY 05/0907/13/25 mg iron-1 mg chewable tablet Previous Rx's ?Medication ?Instructions ?Recorded hydrocodone 5 mg-acetaminophen 325 1 tab PO Q6H PRN pa in #20 tabs 07/13/25 mg tablet ibuprofen 600 mg tablet 600 mg PO Q6H PRN pain #30 t abs 07/13/25 Allergies Allergy/AdvReac Type Severity Reaction Status Date / Time Penicillins Allergy Verified 07/20/25 00:50 Review of Systems Review of Systems Systems Reviewed: All systems reviewed, normal except as documented ED Exam Narrative Physical exam: Generally patient is alert mumbling and confused, skin is cool pale and dry, eyes pupils equal round reactive to light, head is normocephalic atraumatic, heart regular rate and rhythm, lungs clear to auscultation equal bilaterally, abdomen soft obese nondistended without evidence of erythema or discharge from the surgical wound. Neurologic exam shows the patient be confused not obeying commands but moving all extremities Course Quality Measures none Orders Category Date Time Status Insert IV NOW Care 07/20/25 01:23 Active Notify provider NEEDED Care 07/20/25 01:03 Active Obtain weight daily Care 07/20/25 01:03 Active Strict Intake and Output Q1H Care 07/20/25 01:15 Ordered Strict Intake and Output Q1H Care 07/20/25 02:15 Ordered Strict Intake and Output Q1H Care 07/20/25 03:15 Ordered Strict Intake and Output Q1H Care 07/20/25 04:15 Ordered Strict Intake and Output Q1H Care 07/20/25 05:15 Ordered Strict Intake and Output Q1H Care 07/20/25 06:15 Ordered Strict Intake and Output Q1H Care 07/20/25 07:15 Ordered Strict Intake and Output Q1H Care 07/20/25 08:15 Ordered Strict Intake and Output Q1H Care 07/20/25 09:15 Ordered Strict Intake and Output Q1H Care 07/20/25 10:15 Ordered Strict Intake and Output Q1H Care 07/20/25 11:15 Ordered Strict Intake and Output Q1H Care 07/20/25 12:15 Ordered Strict Intake and Output Q1H Care 07/20/25 13:15 Ordered Strict Intake and Output Q1H Care 07/20/25 14:15 Ordered Strict Intake and Output Q1H Care 07/20/25 15:15 Ordered Strict Intake and Output Q1H Care 07/20/25 16:15 Ordered Strict Intake and Output Q1H Care 07/20/25 17:15 Ordered Strict Intake and Output Q1H Care 07/20/25 18:15 Ordered Strict Intake and Output Q1H Care 07/20/25 19:15 Ordered Strict Intake and Output Q1H Care 07/20/25 20:15 Ordered Strict Intake and Output Q1H Care 07/20/25 21:15 Ordered Strict Intake and Output Q1H Care 07/20/25 22:15 Ordered Strict Intake and Output Q1H Care 07/20/25 23:15 Ordered Strict Intake and Output Q1H Care 07/21/25 00:15 Ordered Strict Intake and Output Q1H Care 07/21/25 01:15 Ordered CBC Routine Lab 07/20/25 01:11 Completed Comprehensive Metabolic Panel Routine Lab 07/20/25 01:11 Completed Fibrinogen Routine Lab 07/20/25 01:11 Completed Magnesium Routine Lab 07/20/25 01:11 Completed Partial Thromboplastin Time Routine Lab 07/20/25 01:11 Completed Prothrombin Time with INR Routine Lab 07/20/25 01:11 Completed Uric Acid Routine Lab 07/20/25 01:11 Completed Urinalysis Routine Lab 07/20/25 01:43 Completed Calcium Gluconate 10% Inj Med 07/20/25 01:03 Active 1 gm IV PRN PRN Labetalol IV [Trandate IV] Med 07/20/25 01:03 Discontinued 20 mg IVP X1 ONE Magnesium Sulfate 4 GM Ivpb [Magnesium Sulfate Ivpb] Med 07/20/25 01:03 Discontinued 4 gm in 50 ml IV 100 mls/hr Vital Signs Vital signs: Vital Signs Temperature 99 F 07/20/25 00:56 Pulse Rate 86 07/20/25 00:56 Respiratory Rate 24 H 07/20/25 00:56 Blood Pressure 128/81 07/20/25 00:56 Pulse Oximetry (%) 99 07/20/25 00:56 Oxygen Delivery Method Room Air 07/20/25 00:56 Critical Care Time Critical Care Time Critical Care Time: Yes Total Critical Care Time (min.): 35 Attestation: Excluding other billable procedures Discharge Plan Plan Patient Disposition: Admit Acute Care w/in Hospital Prescriptions/Referrals Prescriptions/Med Rec: No Action vitamin no.45-iron-FA 28 mg iron- 1 mg tablet,chewable 1 tab PO QDAY ibuprofen 600 mg tablet 600 mg PO Q6H PRN (Reason: pain) Qty: 30 0RF hydrocodone-acetaminophen 5-325 mg tablet 1 tab PO Q6H MDD 4 PRN (Reason: pain) Qty: 20 0RF Problem List Clinical Impression: Eclampsia Patient/Caregiver Discharge Instructions Print Language: Slovak Stand Alone Forms: Svetlana Award Info., Patient Portal Info Letter MDM Narrative MDM hospital course (for use when minimal MDM required): Scribe Attestation: 07/20/25 Brittnee Amato am scribing for and in the presence of Dr. Joy. Patient blood pressures here in the emergency room were 147/103, 153/114 and 148/97. I believe this patient who suffered from preeclampsia during her had a seizure. This makes her eclamptic. Patient received mag sulfate 4 g IV and just receiving that medication has brought the patient's blood pressure down to 126/54. Patient now is more alert and talking. Eclamptic labs were drawn. Case will be discussed with Dr. Arriaga and the patient will require admission to the hospital for further treatment and evaluation for eclampsia. Clinical Information Provided by: patient Medical Records reviewed [facility] (Per chart review, patient was admitted here on 07/13/25 for severe preeclampsia and had a done on the same day.) Meds/Rx considered, not ordered None Labs/Rad/Tests considered, not ordered None Chronic Illness/Social Conditions Explain: Hx preeclampsia Labs Labs: interpreted by me Medication Administration(s) Medication Administration History Calcium Gluconate (Calcium Gluconate 10% Inj 1 Gm/10 Ml Vial) 1 gm IV PRN PRN PRN Reason: SEE DOSE INSTRUCTIONS Discontinued Medications Magnesium Sulfate (Magnesium Sulfate Ivpb) 4 gm in 50 mls @ 100 mls/hr IV .Q30M ONE Stop: 07/20/25 01:32 Last Infusion: 07/20/25 02:19 Dose: Infused Documented By: Admin: 07/20/25 01:46 Dose: 100 mls/hr Documented By: STEFFEN Labetalol HCl (Labetalol Inj 5 Mg/Ml Vial 20 Ml) 20 mg IVP X1 ONE Stop: 07/20/25 01:04 see above Diagnosis Differential Diagnosis ED Complaint MDM: See MDM.
[2025-07-20 01:35] LABS: Basophils # (Auto) 0.1 Thou/mm3 (0.0-0.2); Basophils % (Auto) 1 % (0-2.5); Eosinophils # (Auto) 0.4 Thou/mm3 (0.0-0.5); Eosinophils % (Auto) 5 % (0-10); Hematocrit 31.6 % (36.0-46.0); Hemoglobin 10.6 g/dL (12.0-16.0); Immature Granulocytes Auto 0.02 Thou/mm3 (0.00-0.00); Lymphocytes # (Auto) 2.7 Thou/mm3 (1.0-4.8); Lymphocytes % (Auto) 38 % (10-50); Mean Corpuscular HGB Conc 33.5 g/dl (31.0-37.0); Mean Corpuscular Hemoglobin 29.8 pg (25.0-35.0); Mean Corpuscular Volume 89 fL (80-100); Monocytes # (Auto) 0.5 Thou/mm3 (0.0-0.8); Monocytes % (Auto) 7 % (0-12); Neutrophils # (Auto) 3.5 Thou/mm3 (1.8-7.7); Neutrophils % (Auto) 49 % (37-80); Nucleated Red Blood Cell # 0.00 Thou/mm3 (0.00-0.00); Nucleated Red Blood Cell % 0 /100 WBC (0); Platelet Count 309 Thou/mm3 (140-440); RDW Standard Deviation 45.4 fL (36.4-46.3); Red Blood Count 3.56 Miln/mm3 (4.00-5.20); White Blood Count 7.2 Thou/mm3 (3.6-11.0)
[2025-07-20] MEDS: Magnesium Sulfate 4 GM Ivpb 4 GM/50 ML BAG IV (01:46)
[2025-07-20 01:50] LABS: Alanine Aminotransferase 20 U/L (10-49); Albumin, Serum 4.0 gm/dL (3.5-5.0); Albumin/Globulin Ratio 1.9 (1.2-2.2); Alkaline Phosphatase 96 U/L (46-116); Anion Gap 12 (7-16); Aspartate Amino Transferase 18 U/L (0-34); BUN/Creatinine Ratio 15 Ratio (12-20); Bilirubin,Total 0.2 mg/dL (0.3-1.2); Blood Urea Nitrogen 9 mg/dL (9-23); Calcium 9.1 mg/dL (8.3-10.6); Calcium (Corrected) 9.1 mg/dL (8.5-10.1); Carbon Dioxide 26.2 mMol/L (20.0-31.0); Chloride 105 mMol/L (98-107); Creatinine (Component) 0.6 mg/dL (0.6-1.3); Estimated Creatinine Clearance 144.4 mL/min (>60); Globulin 2.1 gm/dL (2.3-3.5); Glucose 95 mg/dL (74-106); Magnesium 1.7 mg/dL (1.6-2.6); Osmolality,Calculated 283 (275-295); Potassium 3.7 mMol/L (3.4-5.1); Sodium 143 mMol/L (136-145); Total Protein 6.1 gm/dL (5.7-8.2); Uric Acid 5.7 mg/dL (3.1-7.8); eGFR > 60 See Note
--- NOTE | 2025-07-20 01:50 | PC.NURSE ---
PER MD TO HOLD LABETALOL DUE TO BP (SEE VS)
[2025-07-20 01:53] LABS: INR 1.0 (0.9-1.3); Partial Thromboplastin Time 31.6 Seconds (22.0-36.0); Prothrombin Time 10.3 Seconds (9.0-12.2)
[2025-07-20 01:53] LABS: Collection Type, Urine Catheter
[2025-07-20 02:00] LABS: Bilirubin,Urine Negative (Negative); Blood,Urine 3+ (Negative); Clarity,Urine Clear (Clear/Hazy); Color,Urine Colorless (Lt Yel-Yel); Glucose, Urine Negative (Negative); Ketones,Urine Negative (Negative); Leukocyte Esterase,Urine Positive (Negative); Nitrite,Urine Negative (Negative); PH,Urine 7.0 (5.0-7.0); Protein,Urine Negative (Neg - Trace); RBC,Urine 14 /hpf (0-3); Specific Gravity,Urine 1.008 (1.001-1.035); Squamous Epithelial Cell,Urine 1 /hpf (0-5); Urobilinogen,Urine Negative mg/dL (0.0-1.0); WBC,Urine 19 /hpf (0-5)
[2025-07-20 02:09] LABS: Fibrinogen 609 mg/dL (175-375)
--- NOTE | 2025-07-20 02:42 | ESHP_ITS ---
Documentation for date of: 07/20/25 BENEFITS CONSULTING ANALYST - HPI History of Present Illness History of present illness: E: REYES HERNÁNDEZ : 2000 DATE OF ADMISSION: 07/13/2025 HISTORY OF PRESENT ILLNESS: This is a 24-year-old 1, para 1 who is POD # 7 after C/S at 35 weeks for preeclampsia with severe features who experienced a generalized tonic clonic seizure withnessed by spouse and was immediately BIBA for ER evaluation. Postictal state observed. She had been doing well in her recovery without headaches or RUQ pain or woresening swelling. She denies any chest pain, palpitations, cough, fever, shortness of breath or lower extremity pain. PAST MEDICAL HISTORY: Preeclampsia with severe features, Klebsiella and E. coli urinary tract infection 03/08/2025 and 06/14/2025. MEDICATIONS: 1. multivitamin 1 p.o. daily. 2. Aspirin 1 p.o. daily. ALLERGIES: PENICILLIN. PAST SURGICAL HISTORY: Delivery SOCIAL HISTORY: She denies any alcohol, drug use or smoking. FAMILY HISTORY: Denies. REVIEW OF SYSTEMS: As above. PHYSICAL EXAMINATION: VITAL SIGNS: Blood pressure 148/97 , heart rate 92 respiration 20, temperature is 98.6. HEENT: Oropharynx and sclerae are clear. Facial edema. LUNGS: Clear to auscultation bilaterally. HEART: Tachycardic, but regular rhythm. ABDOMEN: Incision healing well. Nondistended, fundus firm, no guarding or rebound. EXTREMITIES: +2 bilateral lower extremity edema. SKIN: No gross rashes or lesions. NEUROLOGIC: No focal deficit. ASSESSMENT AND PLAN: POD # 7 after C/S. Eclampsia. PLAN: Magnesium sulfate for Seizure Prophylaxis x 24 hours followed by [address] Scan Head. Care. Support. Meds Home Medications and Allergies Home Medications ?Medication ?Instructions ?Recorded ?Confirmed ?Type vitamins no.45-iron-FA 28 1 tab PO QDAY 05/0907/13/25 History mg iron-1 mg chewable tablet Allergies Allergy/AdvReac Type Severity Reaction Status Date / Time Penicillins Allergy Verified 07/20/25 04:01 Exam - BENEFITS CONSULTING ANALYST Vital Signs Temp Pulse Resp BP Pulse Ox O2 Del Method 99 F 86 24 H 128/81 99 Room Air 07/20/25 00:56 07/20/25 00:56 07/20/25 00:56 07/20/25 00:56 07/20/25 00:56 07/20/25 00:56 BENEFITS CONSULTING ANALYST - Results Labs 07/20/25 01:11 07/20/25 01:11 Labs: Short CBC 07/20/25 Range/Units 01:11 WBC 7.2 (3.6-11.0) Thou/mm3 Hgb 10.6 L (12.0-16.0) g/dL Hct 31.6 L (36.0-46.0) % Plt Count 309 D (140-440) Thou/mm3 BMP 07/20/25 01:11 Sodium 143 Potassium 3.7 Chloride 105 Carbon Dioxide 26.2 BUN 9 Creatinine 0.6 Glucose 95 Calcium 9.1 Liver Function 07/20/25 Range/Units 01:11 Total Bilirubin 0.2 L (0.3-1.2) mg/dL AST 18 (0-34) U/L ALT 20 (10-49) U/L Alkaline Phosphatase 96 (46-116) U/L Albumin 4.0 (3.5-5.0) gm/dL Urine 07/20/25 Range/Units 01:43 Urine Color Colorless A (Lt Yel-Yel) Urine Clarity Clear (Clear/Hazy) Urine pH 7.0 (5.0-7.0) Ur Specific Molina 1.008 (1.001-1.035) Urine Protein Negative (Neg - Trace) Urine Glucose (UA) Negative (Negative) Quality Measures Quality Measures none
--- NOTE | 2025-07-20 02:55 | XR_ITS ---
Examination: CT brain head without contrast. 2-D sagittal coronal reconstructions Date and time of exam: July 20, 2025, 0446 hours INDICATIONS: Onset headaches eclampsia today CTDI: vol (mGy): 50 DLP: (mGycm): 968 Technique: Multiple CT axial sections of the brain have been obtained, 5 mm slice thickness. Contrast has not been administered. 2-D sagittal, coronal reconstructions have been obtained Low dose protocols were performed. One or more of the following dose reduction techniques were used; automated exposure control, adjustment of the mA and/or KV according to patient size, use of iterative reconstruction technique. Findings: No significant ventricular enlargement. Intra-axial or extra-axial hemorrhage density is not seen. No mass effect or midline shift Basal cisterns are not remarkable. Fourth ventricle is midline. Cranial vault intact. Impression: Negative for acute hemorrhage, mass effect or midline shift Significant chronic sphenoid sinusitis
[2025-07-20] MEDS: RINGERS LACTATED 1000 ML 1,000 ML 100 ML IV ×2 (03:37→20:09)
[2025-07-20] MEDS: MAGNESIUM SULF 20 GM IVPB 20 GM/500 ML BAG IV ×2 (03:46→16:12)
--- NOTE | 2025-07-20 04:54 | PRELIM_ITS ---
CT scan of the head without intravenous contrast (axial sections with sagittal and coronal reformats). July 20, 2025 0446 hours Clinical History: Eclampsia Comparison: None Findings: There is no intracranial hemorrhage, extra-axial collection, mass, mass-effect or midline shift. There is good hartman-white differentiation. There is no CT evidence of acute large vascular territorial infarct. Ventricles are not enlarged or effaced. Visualized paranasal sinuses and tympanomastoid cavities are clear except for trace bilateral sphenoid sinus mucosal thickening. The bony calvarium is intact. Impression: No intracranial hemorrhage, mass-effect or midline shift. No CT evidence of acute large vascular territorial infarct. Report Electronically Signed By: Johan Patricia 07/20/2025 4:54:03 AM [EST]
[2025-07-20] MEDS: HYDROcodone/APAP 5/325 TABLET 1 TAB PO ×4 (05:18→22:05)
[2025-07-20 07:07] LABS: Magnesium 4.0 mg/dL (1.6-2.6)
--- NOTE | 2025-07-20 07:07 | ESPR_ITS ---
RE: REYES HERNÁNDEZ : 2000 DATE OF SERVICE: 07/20/2025 SUBJECTIVE: The patient has had no seizure activity since her admission and placement on magnesium. She is awake and alert and oriented. She denies any numbness or tingling or weakness or decrease in range of motion of extremities. She denies any difficulty breathing. She denies any headache, change in vision or right upper quadrant pain. She denies any swelling in her face and hands. OBJECTIVE: Vital signs: Blood pressure 118/69, heart rate 67, respirations 17, temperature is 98.0, pulse oximetry is 95% on room air. Lungs: Clear to auscultation bilaterally. Heart: Regular rate and rhythm. Abdomen: Incision clean and intact. Extremities: Nontender. Neurological: No deficit appreciated. ASSESSMENT AND PLAN: Postoperative day #7 status post delivery for preeclampsia with severe features. Eclampsia with readmission to the hospital for magnesium sulfate for seizure chemoprophylaxis. Plan is to continue magnesium sulfate for 24 hours and then observe another 24 hours and if remains seizure free to discharge home. CT of the head is pending. PIH labs are normal. No evidence of HELLP syndrome. Maintain at bed rest with seizure precautions. Monitor magnesium level. I discussed with the patient the nature of her condition, the recommended treatment plan. All questions answered. DT: 06:59:40 TT: 07:06:00 Ref: [id number] - TID: [id number]
[2025-07-20 13:56] LABS: Magnesium 5.4 mg/dL (1.6-2.6)
[2025-07-20] MEDS: IBUPROFEN TAB 400 MG TABLET 800 MG PO (16:12)
[2025-07-20 20:18] LABS: Magnesium 5.8 mg/dL (1.6-2.6)
[2025-07-21] VITALS (11 sets, daily range): BP systolic 102–123; BP diastolic 49–86; PULSE 73–96; RESP 16–22; TEMP 36.5–37.2; O2SAT 95–98
[2025-07-21] MEDS: IBUPROFEN TAB 400 MG TABLET 800 MG PO ×3 (01:54→23:48)
[2025-07-21] MEDS: MAGNESIUM SULF 20 GM IVPB 20 GM/500 ML BAG IV (03:19)
[2025-07-21 06:52] LABS: Basophils # (Auto) 0.1 Thou/mm3 (0.0-0.2); Basophils % (Auto) 1 % (0-2.5); Eosinophils # (Auto) 0.4 Thou/mm3 (0.0-0.5); Eosinophils % (Auto) 6 % (0-10); Hematocrit 34.6 % (36.0-46.0); Hemoglobin 11.3 g/dL (12.0-16.0); Immature Granulocytes Auto 0.02 Thou/mm3 (0.00-0.00); Lymphocytes # (Auto) 2.0 Thou/mm3 (1.0-4.8); Lymphocytes % (Auto) 32 % (10-50); Mean Corpuscular HGB Conc 32.7 g/dl (31.0-37.0); Mean Corpuscular Hemoglobin 29.0 pg (25.0-35.0); Mean Corpuscular Volume 89 fL (80-100); Monocytes # (Auto) 0.4 Thou/mm3 (0.0-0.8); Monocytes % (Auto) 6 % (0-12); Neutrophils # (Auto) 3.3 Thou/mm3 (1.8-7.7); Neutrophils % (Auto) 55 % (37-80); Nucleated Red Blood Cell # 0.00 Thou/mm3 (0.00-0.00); Nucleated Red Blood Cell % 0 /100 WBC (0); Platelet Count 368 Thou/mm3 (140-440); RDW Standard Deviation 44.9 fL (36.4-46.3); Red Blood Count 3.89 Miln/mm3 (4.00-5.20); White Blood Count 6.1 Thou/mm3 (3.6-11.0)
--- NOTE | 2025-07-21 06:57 | ESPR_ITS ---
RE: REYES HERNÁNDEZ : 2000 DATE OF SERVICE: 07/21/2025 SUBJECTIVE: Postop day #8. The patient has had no seizure activity since admission. She is currently finishing 24 hours of magnesium sulfate with a therapeutic magnesium level at 5.8. She had some headaches yesterday, but resolved with ibuprofen. CT scan of the head showed sinusitis, but no brain pathology. She is voiding and ambulating. She has got adequate urine output with Burnett catheter in place. She denies any excessive vaginal bleeding. She denies any dizziness or lightheadedness. She denies any chest pain, palpitation, shortness of breath, or lower extremity pain. OBJECTIVE: Vital Signs: Blood pressure 111/49, heart rate 73, respirations 22, temperature is 98.6. Pulse ox is 95% on room air. Lungs: Clear to auscultation bilaterally. Cardiovascular: Heart regular rate and rhythm. Abdomen: Incision clear and intact. Extremities: Nontender. ASSESSMENT: Postoperative day #8 status post delivery for preeclampsia with severe features. Eclampsia with readmission to the hospital for 24 hours of magnesium sulfate for seizure chemoprophylaxis. The patient completed her 24 hours of magnesium sulfate without any seizure activity during that time. PLAN: 1. DC magnesium sulfate. 2. Continue seizure precautions inpatient for the next 24 hours. 3. Out of bed only with assistance. 4. DC Burnett catheter. 5. Initiate antibiotics for presumptive sinusitis based on CT findings of ethmoidal sinusitis. 6. Possible discharge home tomorrow. DT: 06:27:26 TT: 06:55:00 Ref: [id number] - TID: [id number]
[2025-07-21 07:13] LABS: Alanine Aminotransferase 20 U/L (10-49); Albumin, Serum 4.2 gm/dL (3.5-5.0); Albumin/Globulin Ratio 2.1 (1.2-2.2); Alkaline Phosphatase 98 U/L (46-116); Anion Gap 10 (7-16); Aspartate Amino Transferase 18 U/L (0-34); BUN/Creatinine Ratio 10 Ratio (12-20); Bilirubin,Total 0.2 mg/dL (0.3-1.2); Blood Urea Nitrogen 6 mg/dL (9-23); Calcium 7.4 mg/dL (8.3-10.6); Calcium (Corrected) 7.4 mg/dL (8.5-10.1); Carbon Dioxide 29.1 mMol/L (20.0-31.0); Chloride 103 mMol/L (98-107); Creatinine (Component) 0.6 mg/dL (0.6-1.3); Estimated Creatinine Clearance 144.4 mL/min (>60); Globulin 2.0 gm/dL (2.3-3.5); Glucose 90 mg/dL (74-106); Osmolality,Calculated 280 (275-295); Potassium 3.8 mMol/L (3.4-5.1); Sodium 142 mMol/L (136-145); Total Protein 6.2 gm/dL (5.7-8.2); eGFR > 60 See Note
[2025-07-21] MEDS: ACETAMINOPHEN 325 MG TABLET 650 MG PO (07:46)
[2025-07-21] MEDS: AZITHROMYCIN 250 MG TABLET 500 MG PO (09:24)
[2025-07-21] MEDS: CALCIUM CARBONATE 600 MG TABLET PO ×2 (09:24→20:41)
--- NOTE | 2025-07-21 10:00 | PC.NURSE ---
POST VOID 500
--- NOTE | 2025-07-21 11:33 | PC.SS ---
FINANCIAL COMPLIANCE OFFICER conducted bedside contact with the patient to address nursing referral indicating patient possesses a history of anxiety.? FINANCIAL COMPLIANCE OFFICER introduced self and role.? At bedside with patient was Ruddy AMATO.? Patient gave permission for FOB to be present during discussion.? FINANCIAL COMPLIANCE OFFICER reviewed basis of referral.? Patient confirmed history of anxiety.? Patient stated exhibiting seizure prompting the patient?s level of anxiety to increase.? At present time patient denies possession of elevated level of anxiety.? FOB voiced no concern over patient?s current emotional disposition.? Patient delivered infant, Dilip; last week.? is patient?s first child.? Patient is aligned with WIC and SNAP.? Patient is not receiving TANF.? Patient denies history of alcohol/drug abuse.? Patient denies CWS intervention.? Patient denies episodes of domestic violence.? Patient plans on breast feeding the .? Patient has access to appropriate supplies and equipment; to include a car seat.? Family will provide transportation upon discharge.? Patient describes possessing support system consisting of parents and extended family.? FINANCIAL COMPLIANCE OFFICER provided the patient with community resources to include [employer] and Warm Line.? No further intervention required at this time, school social worker will be available to address any further concerns.? FINANCIAL COMPLIANCE OFFICER updated bedside nurse.?
[2025-07-22 03:46] VITALS: BP 111/73; PULSE 59; RESP 17; TEMP 36.8; O2SAT 97
[2025-07-22 07:15] VITALS: BP 109/74; PULSE 85; RESP 18; TEMP 36.5; O2SAT 97
--- NOTE | 2025-07-22 07:36 | ESPR_ITS ---
RE: REYES HERNÁNDEZ : 2000 DATE OF SERVICE: 07/22/2025 The patient denies any problem or complaint. She denies any headache, change of vision or right upper quadrant pain. She denies any chest pain, palpitation, shortness of breath or lower extremity pain. Blood pressure 111/73, heart rate 59, respirations 17, temperature is 98.2. Pulse ox is 97% on room air. Lungs clear to auscultation bilaterally. Heart, regular rate and rhythm. Abdomen nontender. Incision clear and intact. Extremities nontender. Neurological exam, no focal deficit. ASSESSMENT: Status post 24 hours of magnesium sulfate for chemoprophylaxis for seizures due to eclampsia. PLAN: Discharge home. Discharge instructions given. Follow up in the office next week. DT: 07:20:03 TT: 07:34:00 Ref: [id number] - TID: [id number]
[2025-07-22] MEDS: AZITHROMYCIN 250 MG TABLET 500 MG PO (08:23)
[2025-07-22] MEDS: CALCIUM CARBONATE 600 MG TABLET PO (08:23)
[2025-07-22] MEDS: IBUPROFEN TAB 400 MG TABLET 800 MG PO (08:23)
== END 2025-07-22 11:03 | disposition home or self-care (01) | DRG 561 ==
LOC: SERX 02:42 → SERHOLD 02:51 → S4NX 05:54
PROVIDERS: Admitting Provider Specialist; Emergency Provider Emergency Medicine; PCP Registered Nurse Community Health; Visit Provider Specialist
DX: O14.15 Severe pre-eclampsia, complicating the puerperium (principal); J32.2 Chronic ethmoidal sinusitis; O99.53 Diseases of the respiratory system complicating the puerperium; O99.355 Diseases of the nervous system complicating the puerperium; R56.9 Unspecified convulsions
CPT/HCPCS: 36415; 70450; 80053; 81001; 83735; 84550; 85025; 85384; 85610; 85730; 96365; 99282; J3475; J7120; A9270

== ENCOUNTER 2025-07-27 00:27 | Emergency (ER) | payer MEDICAID, SELFPAY ==
[2025-07-27 01:16] VITALS: BP 118/72; PULSE 64; RESP 17; TEMP 36.6; O2SAT 99
--- NOTE | 2025-07-27 01:34 | EDNOTE_ITS ---
ED SOB =RME/HPI General Chief Complaint: Shortness of Breath/Dyspnea Stated Complaint: SOB, MADSEN, CONFUSED Time Seen by Provider: 07/27/25 01:37 Arrival date/time: 07/27/25 00:27 RME / HPI RME / HPI Narrative: Dr. Joy?s Main ED Evaluation: 24yo female who was discharged 5 days ago after being admitted for eclampsia presents to the ED for complaints of shortness of breath and difficulty to arouse. Patient states she has been feeling short of breath x 1 day. Her partner at bedside reports the patient was difficult to arouse at 2330 (may have been sleeping), but he was concerned, so he brought the patient in for evaluation. Patient denies any chest pain, fever, chills, N/V, or any other associated symptoms. Related Data Home Medications ?Medication ?Instructions ?Recorded ?Confirmed vitamins no.45-iron-FA 28 1 tab PO QDAY 05/0907/13/25 mg iron-1 mg chewable tablet Previous Rx's ?Medication ?Instructions ?Recorded hydrocodone 5 mg-acetaminophen 325 1 tab PO Q6H PRN pa in #20 tabs 07/13/25 mg tablet ibuprofen 600 mg tablet 600 mg PO Q6H PRN pain #30 t abs 07/13/25 Allergies Allergy/AdvReac Type Severity Reaction Status Date / Time Penicillins Allergy Verified 07/27/25 00:28 Review of Systems Review of Systems Systems Reviewed: All systems reviewed, normal except as documented Past Medical History Past Medical History NEUROLOGIC: Negative Neurological Disorders or Seizures CARDIAC: Negative Cardiac Disorders or Congestive Heart Failure RESPIRATORY: Negative Chronic Obstructive Pulmonary Disease (COPD) or Asthma GASTROINTESTINAL: Negative Gastrointestinal Disorders GENITOURINARY: Negative Genitourinary Disorders or Renal Disease REPRODUCTIVE: Negative Pelvic Inflammatory Disease MUSCULOSKELETAL: Negative Musculoskeletal Disorders ENDOCRINE: Negative Endocrine Disorders, Diabetes Mellitus Type 1 or Diabetes Mellitus Type 2 HEMATOLOGIC: Negative Blood Disorders or Sickle Cell Disease OTHER HISTORY: Negative Autoimmune Disease, Blood Transfusions, Blood Transfusion Reaction, Anesthesia Reactions, Organ Transplant, MRSA, VRSA, Vancomycin-Resistant Enterococci, Clostridium Difficile or Cancer Family History FAMILY HISTORY: Positive Family Cardiac Disorders and Family Cancer (paternal grandmother); Negative Family Psychiatric Problems, Family Respiratory Disorders, Family G astrointestinal Problems, Family Surgery or Family Anesthesia Reaction Surgical History SURGICAL: Positive Section; Negative Organ Transplant Social History SMOKING STATUS: Never smoker SECOND HAND EXPOSURE: No ED Exam Narrative Physical exam: Generally patient is alert no obvious distress, lungs clear to auscultation equal bilaterally with an O2 saturation on room air of 99 to 100% not tachypneic, heart regular rate and rhythm, abdomen soft bowel sounds present nondistended nontender, skin is warm and dry, neurologic exam no focal motor deficits with [place] Coma Scale of 15 Course Course Course Narrative: CXR is ordered for determining the etiology of shortness of breath. Quality Measures none Orders Category Date Time Status XR chest 1V portable Stat Exams 07/27/25 01:44 Taken BNP [B-Type Natriuretic Peptide] Stat Lab 07/27/25 02:13 Completed CBC Stat Lab 07/27/25 02:13 Completed CMP [Comprehensive Metabolic Panel] Stat Lab 07/27/25 02:13 Completed Vital Signs Vital signs: Vital Signs Temperature 97.9 F 07/27/25 01:16 Pulse Rate 64 07/27/25 01:16 Respiratory Rate 17 07/27/25 01:16 Blood Pressure 118/72 07/27/25 01:16 Pulse Oximetry (%) 99 07/27/25 01:16 Oxygen Delivery Method Room Air 07/27/25 01:16 Shortness of Breath / Dyspnea MDM Narrative [facility] Narrative:: Scribe Attestation: 07/27/25 - Brittnee Dawson, daniela scribing for and in the presence of Dr. Joy. Chest x-ray appears normal. BNP is not elevated. There is no anemia. No leukocytosis. Renal function is normal. LFTs are normal. Bilateral lower extremities show no asymmetrical edema. I do not believe this patient have a p ulmonary embolism. Patient does not appear to be short of breath. Patient will be discharged in stable condition to follow-up with primary care or to return to the emergency room as needed or if condition worsens. Patient data External records reviewed:: [facility] previous records (Per chart review, patient was admitted here on 07/20/25 for eclampsia.) Clinical information provided by:: patient Social determinants that could affect healthcare access:: none Patient has the following chronic illnesses:: eclampsia How is presenting disease/condition affected by chronic disease/condition?: uneffected by Evaluation data The following diagnostics were reviewed and interpreted by me:: lab results and radiology exam(s) Lab and/or radiology exams considered but not ordered:: none Interpretation Summary: See MDM Medications / Prescriptions Medications or Prescriptions considered but not ordered:: none Medication administrations:: see above, if any Consultations Consultation(s) initiated? (list below): No Diagnosis Shortness of Breath Differential Diagnosis: other (See MDM) Most likely diagnosis given after review of the tests above:: see clinical impression below Admission Indicated Admission indicated?: not indicated Admission Request Was there a request for admission?: No Disposition Plan Disposition Plan: Discharge Discharge Attestation Discharge Attestation: The patient and all family members were given an opportunity to ask questions and understood the discharge instructions. Discharge instructions specifically effects, indications for sooner follow up or return to the emergency department, and the expected course of current diagnosis. Patient condition: Stable Discharge Plan Plan Patient Disposition: HOME (Self Care) Prescriptions/Referrals Prescriptions/Med Rec: No Action vitamin no.45-iron-FA 28 mg iron- 1 mg tablet,chewable 1 tab PO QDAY ibuprofen 600 mg tablet 600 mg PO Q6H PRN (Reason: pain) Qty: 30 0RF hydrocodone-acetaminophen 5-325 mg tablet 1 tab PO Q6H MDD 4 PRN (Reason: pain) Qty: 20 0RF Problem List Clinical Impression: Dyspnea Patient/Caregiver Discharge Instructions Education Materials: ED Shortness of Breath (Dyspnea) Additional Instructions: You are stable for discharge at this time. Return to ER as needed or if condition worsens. Print Language: Khmer Stand Alone Forms: Svetlana Award Info., Patient Portal Info Letter
--- NOTE | 2025-07-27 01:44 | XR_ITS ---
EXAMINATION: AP chest single view TECHNIQUE: AP portable upright chest single view Date and time: July 27, 2025, 0200 hours INDICATIONS: Shortness of breath chest pain headaches beginning today FINDINGS: Normal heart size No pneumonia or pulmonary edema The osseous structures are intact IMPRESSION: No active disease
[2025-07-27 01:51] VITALS: BMI 36.6
[2025-07-27 02:25] LABS: Basophils # (Auto) 0.1 Thou/mm3 (0.0-0.2); Basophils % (Auto) 1 % (0-2.5); Eosinophils # (Auto) 0.5 Thou/mm3 (0.0-0.5); Eosinophils % (Auto) 6 % (0-10); Hematocrit 37.2 % (36.0-46.0); Hemoglobin 12.1 g/dL (12.0-16.0); Immature Granulocytes Auto 0.02 Thou/mm3 (0.00-0.00); Lymphocytes # (Auto) 2.7 Thou/mm3 (1.0-4.8); Lymphocytes % (Auto) 31 % (10-50); Mean Corpuscular HGB Conc 32.5 g/dl (31.0-37.0); Mean Corpuscular Hemoglobin 28.7 pg (25.0-35.0); Mean Corpuscular Volume 88 fL (80-100); Monocytes # (Auto) 0.4 Thou/mm3 (0.0-0.8); Monocytes % (Auto) 5 % (0-12); Neutrophils # (Auto) 4.9 Thou/mm3 (1.8-7.7); Neutrophils % (Auto) 57 % (37-80); Nucleated Red Blood Cell # 0.00 Thou/mm3 (0.00-0.00); Nucleated Red Blood Cell % 0 /100 WBC (0); Platelet Count 468 Thou/mm3 (140-440); RDW Standard Deviation 43.8 fL (36.4-46.3); Red Blood Count 4.22 Miln/mm3 (4.00-5.20); White Blood Count 8.6 Thou/mm3 (3.6-11.0)
[2025-07-27 02:46] LABS: B-Type Natriuretic Peptide < 20 pg/mL (0-100)
[2025-07-27 02:47] LABS: Alanine Aminotransferase 22 U/L (10-49); Albumin, Serum 4.5 gm/dL (3.5-5.0); Albumin/Globulin Ratio 1.9 (1.2-2.2); Alkaline Phosphatase 113 U/L (46-116); Anion Gap 13 (7-16); Aspartate Amino Transferase 21 U/L (0-34); BUN/Creatinine Ratio 20 Ratio (12-20); Bilirubin,Total 0.2 mg/dL (0.3-1.2); Blood Urea Nitrogen 14 mg/dL (9-23); Calcium 9.5 mg/dL (8.3-10.6); Calcium (Corrected) 9.5 mg/dL (8.5-10.1); Carbon Dioxide 24.1 mMol/L (20.0-31.0); Chloride 107 mMol/L (98-107); Creatinine (Component) 0.7 mg/dL (0.6-1.3); Estimated Creatinine Clearance 130.9 mL/min (>60); Globulin 2.4 gm/dL (2.3-3.5); Glucose 93 mg/dL (74-106); Osmolality,Calculated 287 (275-295); Potassium 3.8 mMol/L (3.4-5.1); Sodium 144 mMol/L (136-145); Total Protein 6.9 gm/dL (5.7-8.2); eGFR > 60 See Note
[2025-07-27 02:58] VITALS: BP 111/71; PULSE 80; RESP 14; TEMP 37; O2SAT 99
== END 2025-07-27 02:59 | disposition home or self-care (01) ==
LOC: SERX 02:59
PROVIDERS: Emergency Provider Emergency Medicine; PCP Registered Nurse Community Health
DX: R06.00 Dyspnea, unspecified (principal)
CPT/HCPCS: 36415; 71045; 80053; 83880; 85025; 99283